=== PATIENT | female | born 1950 | race Caucasian/White ===

== ENCOUNTER 2016-10-14 11:18 | Inpatient (IN) | payer OTHER ==
[~2016-10-14] VITALS: Ht 170.2 cm; Wt 73.0 kg
[2016-10-14 11:23] VITALS: BP 179/120
--- NOTE | 2016-10-14 11:25 | NUR ---
66/F BIBA FROM HOME FOR 66 YO FEMALE LOW BACK PAIN R/T FALL. REPORTED TO BE ON THE FLOOR FOR 4 DAYS. AWAKE AND ALERT ON ARRIVAL, PLACED ON 5150 HOLD FOR GRAVELY DISABLED. NO ACUTE DISTRESS. REDNESS NOTED TO BACK. CMS INTACT X4. PT SAFETY AND COMFORT MEASURES PROVIDED.
--- NOTE | 2016-10-14 11:32 | NUR ---
Patient being evaluated by physician at bedside.
[2016-10-14] MEDS ORDERED: fentaNYL 0.05 MG/ML VIAL IM ONE (11:40)
[2016-10-14] MEDS ORDERED: NACL 0.9% 1,000 ML IV ONE (11:40)
--- NOTE | 2016-10-14 12:00 | NUR ---
20G TO LAC. BLOOD DRAWN FOR LABS. IV PATENT AND INTACT. IVF STARTED.
--- NOTE | 2016-10-14 12:14 | NUR ---
PT TAKEN TO XRAY VIA GUREDNA BY [facility].
[2016-10-14] MEDS ORDERED: POTASSIUM CHLORIDE 20% 40 MEQ/15 ML UDC PO ONE (12:20)
[2016-10-14] MEDS ORDERED: MORPHINE SULFATE 2 MG/ML SYR IVP PRN (12:35)
[2016-10-14] MEDS ORDERED: DOCUSATE SODIUM 100 MG GELCAP PO PRN (12:35)
[2016-10-14] MEDS ORDERED: HYDROcodone/APAP 5/325 MG 1 TAB TAB PO PRN (12:35)
[2016-10-14] MEDS ORDERED: ONDANSETRON 4 MG/2 ML VIAL IVP PRN (12:35)
[2016-10-14] MEDS: NACL 0.9% 1,000 ML IV SCH ×3 (12:45→21:52)
--- NOTE | 2016-10-14 12:51 | NUR ---
Patient will be admitted to care of DR. MONTANA. Admited to [facility] FOR TRACTABLE BACK PAIN, DEHYDRATION AND GRAVELY DISABLED 5150. Will go to room 123-B. Belongings list completed. Report to ESPINOZA MONTGOMERY.
[2016-10-14 13:10] VITALS: BP 166/103
--- NOTE | 2016-10-14 13:10 | NUR ---
PT ADMITTED. VS NOTED. MD MADE AWARE OF ELEVATED BP, LOW POTASSIUM. PT DENIES PAIN AT THIS TIME. NO S/S OF DISTRESS. ROUTINE/PLAN OF CARE DISCUSSED AND REVIEWED, PT VERBALIZES UNDERSTANDING AND COMPLIANCE. IVF INFUSING WELL TO LEFT AC, SITE ASYMPTOMATIC. PERICARE GIVEN. SKIN INTACT, REDNESS TO MEDIAL BACK AREA. BELONGINGS CHECKED AND KEPT AT BEDSIDE. SAFETY MEASURES ENSURED. WILL CONTINUE TO MONITOR.
[2016-10-14] MEDS ORDERED: ECOTRIN 81 MG TABEC PO SCH (13:30)
[2016-10-14] MEDS ORDERED: ATORVASTATIN 20 MG TAB PO SCH (13:30)
[2016-10-14] MEDS ORDERED: POTASSIUM CHLORIDE 20 MEQ, LIDOCAINE 1% 25 MG in NACL 0.9% 250 ML IV SCH (14:00)
[2016-10-14 16:00] VITALS: BP 163/87
[2016-10-14] MEDS ORDERED: BENICAR HCT 12.1 TAB PO (17:20)
[2016-10-14] MEDS ORDERED: ATIVAN0.5 MG PO (17:22)
[2016-10-14] MEDS ORDERED: PREMPRO 0.45 MG1 TAB PO (17:22)
[2016-10-14] MEDS ORDERED: LORazepam 0.5 MG TAB PO PRN (17:25)
--- NOTE | 2016-10-14 17:40 | NUR ---
DR SANCHEZ AT BEDSIDE FOR PSYCH EVAL. PT COOPERATIVE.
[2016-10-14] MEDS ORDERED: INFLUENZA VIRUS VACCINE QUAD 0.5 ML SYR IMVAC SCH (18:20)
[2016-10-14] MEDS ORDERED: PNEUMOCOCCAL VACCINE 23 MCG/0.5 ML VIAL IMVAC SCH (18:20)
--- NOTE | 2016-10-14 19:28 | NUR ---
ENDORSED PLAN OF CARE TO ELECTRON BEAM PHOTO MASK MAKER. CONDITION STABLE.
--- NOTE | 2016-10-14 19:30 | NUR ---
RECEIVED PT SLEEPING, EASILY AROUSABLE, AAOX4, VITAL SIGNS TAKEN, BP SLIGHTLY ELEVATED, ASYMPTOMATIC, DENIES ANY PAIN AT THIS TIME, K-RIDER INFUSING WELL, SAFETY MEASURES IN PLACE, SIDE RAILS UP AND BED ALARM ON, CALL LIGHT WITHIN REACH.
[2016-10-14 20:00] VITALS: BP 153/91
--- NOTE | 2016-10-14 22:00 | NUR ---
PT REFUSED TO BE REPOSITIONED, PT SAID "IM JAIME", COMPLAINING OF BACK PAIN WHEN MOVED BUT ABLE TO MOVED AND CHANGED POSITION OF LOWER EXTREMITIES INDEPENDENTLY, RISK AND BENEFITS EXPLAINED, CLINICAL PHARMACIST FRANK IS AWARE, MONITORED CLOSELY.
[2016-10-15] VITALS: BP 160/92
--- NOTE | 2016-10-15 02:09 | NUR ---
BEDPAN PROVIDED, VOIDED WITH 400ML TERE COLORED URINE, PERINEAL CARE DONE, REPOSITIONED AND OFFLOAD PRESSURE AREAS, TOLERATED WELL, MONITORED CLOSELY.
[2016-10-15 04:00] VITALS: BP 163/95
--- NOTE | 2016-10-15 04:00 | NUR ---
PT SLEEPING, EASILY AROUSABLE, VITAL SIGNS TAKEN, PT ANXIOUS DURING BP TAKING DUE TO CUFF IS TIGHT, INSTRUCTED TO RELAX SO WE WILL HAVE AN ACCURATE READING OF BP BUT PT STILL ANXIOUS, BP ELEVATED, SR ON TELE, PT DENIES CHEST PAIN, NO SOB NOTED, MONITORED CLOSELY.
[2016-10-15] MEDS: PANTOPRAZOLE 40 MG TABEC PO SCH (05:57)
--- NOTE | 2016-10-15 06:00 | NUR ---
AM LABS DRAWN, DUE PO PROTONIX TAKEN, DENIES PAIN AT THIS TIME, IVF INFUSING WELL, FOR PT EVAL TODAY, MONITORED CLOSELY.
[2016-10-15] MEDS: NACL 0.9% 1,000 ML IV SCH (06:03)
--- NOTE | 2016-10-15 06:46 | NUR ---
K LEVEL OF 2.6, DR MONTANA HERE AND MADE AWARE, WILL PUT ORDER, DR MONTANA ALSO MADE AWARE OF ELEVATED BP, PT WILL START BP MEDICATION TODAY WITH TIFFANY AND BRENT, DR SAID THAT WE WILL RECHECK BP LATER AFTER SHE GOT HER BP MEDICATION, WILL ENDORSE TO AM SHIFT.
--- NOTE | 2016-10-15 07:20 | NUR ---
PT ASLEEP, EASILY AROUSABLE, REPORT GIVEN TO RN MISAEL FOR CONTINUITY OF CARE.
--- NOTE | 2016-10-15 07:21 | NUR ---
RECEIVED REPORT AT BEDSIDE. PT RESTING IN BED. DENIES PAIN. AAOX4. IV SITE PATENT AND INTACT. CALL LIGHT WITHIN REACH. NO S/S OF RESPIRATORY DISTRESS, ON RA.
[2016-10-15 08:00] VITALS: BP 183/91
--- NOTE | 2016-10-15 08:02 | NUR ---
PATIENT HAS BEEN SCREENED AND CATEGORIZED MODERATE NUTRITION RISK. PATIENT WILL BE SEEN WITHIN 3-5 DAYS OF ADMISSION. 10/17/16-10/19/[address]
[2016-10-15] MEDS: POTASSIUM CHLORIDE 10 MEQ TABER PO SCH ×2 (08:38→12:59)
[2016-10-15] MEDS: ATORVASTATIN 20 MG TAB PO SCH (08:38)
[2016-10-15] MEDS: ECOTRIN 81 MG TABEC PO SCH (08:39)
[2016-10-15] MEDS: HYDROCHLOROTHIAZIDE 25 MG TAB PO SCH (08:39)
[2016-10-15] MEDS: LOSARTAN 50 MG TAB PO SCH (08:39)
[2016-10-15] MEDS ORDERED: OLMESARTAN PO SCH (09:00)
[2016-10-15] MEDS ORDERED: HYDROCHLOROTHIAZIDE PO SCH (09:00)
[2016-10-15] MEDS ORDERED: M PROGEST ACET PO SCH (09:00)
[2016-10-15] MEDS ORDERED: ESTROGEN CON PO SCH (09:00)
[2016-10-15] MEDS ORDERED: [UNRECOGNIZED DRUG - OTHER] PO SCH (09:00)
--- NOTE | 2016-10-15 11:30 | NUR ---
PT RESTING IN BED. HAD ECHO PROCEDURE DONE AT BEDSIDE, NO S/S OF ACUTE DISTRESS.
[2016-10-15 12:00] VITALS: BP 160/76
--- NOTE | 2016-10-15 12:27 | NUR ---
CM NOTE PER TICKET SPECULATOR CANDY EXT [phone], REVIEWS SHOULD BE SENT TO [facility] ONLY. INITIAL REVIEW SENT TO [facility] FAX# [phone] PH# [phone]
--- NOTE | 2016-10-15 12:36 | NUR ---
PATIENT SEEN BY DR. FOREMAN AT BEDSIDE. PT RESTING IN BED. REFUSES TO BE TURNED. PATIENT LINENS CHANGED, CLEAN AND DRY.
--- NOTE | 2016-10-15 13:37 | NUR ---
FREDDY ROWE SPOKE WITH FREDDY GTZ OF [facility] PH# [phone] TO INFORM HER OF THE ORDER TO TRANSFER FOR HIGHER LEVEL OF CARE AND [facility]# [phone]. SHE SAID SHE WILL CALL BACK WHEN SHE HAS AN ACCEPTING HOSPITAL AND DOCTOR. GAVE HER THE NUMBER TO THE NURSING FLOOR WHERE THE PATIENT IS IN CASE THE TRANSFER HAPPENS LATER. CHARGE NURSE KARON EXT [phone] AWARE. Addendum: 10/15/16 at 1352 by Karishma Valles CM GAVE FREDDY GTZ OF [facility] THE NUMBER OF DR. MARQUEZ PH# [phone] FOREMAN (NEURO) PH# [phone] FOR DOCTOR TO DOCTOR REPORT.
--- NOTE | 2016-10-15 15:02 | NUR ---
CM NOTE SPOKE WITH FREDDY GTZ OF [facility]# [phone] AND SHE SAID THERE IS NO ACCEPTING NEURO DOCTOR IN [facility] SO SHE WILL TRY THEIR OTHER CONTRACTED FACILITIES [facility] AND [place] IF THERE IS BED AVAILABLE AND IF THERE WILL BE AN ACCEPTING NEURO. GAVE HER THE NUMBER TO THE NURSING FLOOR CHARGE NURSE WHERE PATIENT IS, IN CASE A BED AND ACCEPTING FACILITY WILL BE AVAILABLE LATER. CHARGE NURSE KARON WORKMAN EXT [phone].
--- NOTE | 2016-10-15 15:40 | NUR ---
DR. THOMPSON MADE AWARE OF INCREASED BP. MD TO PLACE ORDERS. PT RESTING IN BED. NO S/S OF ACUTE DISTRESS. ASSISTED IN CHANGING OF POSITIONS, LINENS CHANGED, PATIENT CLEAN AND DRY.
[2016-10-15 16:00] VITALS: BP 176/98
--- NOTE | 2016-10-15 16:19 | NUR ---
FREDDY ROWE SPOKE WITH FREDDY GTZ OF [facility] PH# [phone] AND SHE SAID THEIR ROBOTICS MECHANIC SAID TO GO AHEAD AND TRANSFER THE PATIENT TO [facility]. CALLED [facility] TRANSFER CENTER PH# [phone] AND SPOKE TO GARCIELA AND SHE SAID TO CALL THEIR CLIENT SERVICES [facility] AT PH# [phone] OPTION 2. CALLED [facility]# [phone] OPTION 2 AND SPOKE WITH JAKE AND SHE SAID THEY DON'T HAVE ANY BED AVAILABLE AND THEY DON'T HAVE AN ACCEPTING NEURO RIGHT NOW. FAXED THE INFORMATION [facility] NEEDED REGARDING THE PATIENT TO FAX# [phone]. CALLED BACK FREDDY GTZ OF [facility] SEVERAL TIMES AND LEFT SEVERAL MESSAGES TO HER OFFICE NUMBER PH# [phone] AND CELLPHONE NUMBER PH# [phone] TO INFORM HER [facility] DOESN'T HAVE A BED RIGHT AND TO ASK WHERE ELSE THEY WANT US TO TRANSFER THE PATIENT. LEFT THE NUMBER TO THE NURSING FLOOR WHERE THE PATIENT IS TO FREDDY GTZ'S VOICEMAIL IN CASE SHE WILL CALL BACK AT A LATER TIME. RECEIVED CALL BACK FROM FREDDY GTZ AND SHE SAID TO TRY AND [facility]. CALLED [facility] PH# [phone] AND FAXED PATIENT INFORMATION TO [facility] INCLUDING THE NUMBER TO THE NURSING FLOOR CHARGE NURSE WHERE THE PATIENT IS. FAX# [phone]. PATIENT'S NURSE TO FOLLOW UP ON BED WITH FREDDY GTZ OF [facility] PH# [phone] OR [phone] AND WITH [facility] PH# [phone] AND [facility] AND TO SET UP TRANSPORT ONCE AVAILABLE. CHARGE NURSE KARON WORKMAN EXT [phone]. Addendum: 10/15/16 at 1654 by Karishma Valles CM FAXED PATIENT INFORMATION TO [facility] FAX# [phone] # [phone]
--- NOTE | 2016-10-15 17:00 | NUR ---
SPOKE WITH DR. MARQUEZ, PATIENT TO HAVE ANXIETY MEDICATION AND HAVE BP RECHECKED.
--- NOTE | 2016-10-15 18:30 | NUR ---
RECHECKED PATIENT'S BP. 159/92, HR 110. NO S/S OF DISTRESS NOTED. EATING DINNER IN BED.
--- NOTE | 2016-10-15 19:25 | NUR ---
RECEIVED REPORT FROM ESPINOZA DOUGLAS AT BEDSIDE. INITIAL ASSESSMENT COMPLETED. PT AAX4. PT ON BEDREST. PT HAS IV TO LEFT FOREARM G 20; ASYMPTOMATIC, PATENT AND INTACT INFUSING FLUIDS WELL. PT HAS SOME REDNESS ON HER BACK. ORIENTED PT TO ROOM AND SURROUNDING AND USE OF CALL LIGHT. EXPLAINED PLAN OF CARE TO PT AND SHE VERBALIZES UNDERSTANDING. PT HAS SCDS ON. WILL CONTINUE TO MONITOR PT.
--- NOTE | 2016-10-15 19:36 | NUR ---
SBAR REPORT GIVEN TO ESPINOZA ALLEN AT PT BEDSIDE. NO S/S OF ACUTE DISTRESS.
[2016-10-15 20:00] VITALS: BP 149/91
[2016-10-15] MEDS: MUPIROCIN 2% OINT 22 GM TUBE TP SCH (20:00)
[2016-10-15] MEDS: CHLORHEXADINE GLUC 2% CLOTH TP SCH (21:53)
--- NOTE | 2016-10-15 22:02 | NUR ---
PT SLEEPING AT THIS TIME, NO SIGNS OF DISTRESS OR DISCOMFORT NOTED, WILL CONTINUE TO MONITOR PT.
--- NOTE | 2016-10-15 23:37 | NUR ---
PT AWAKE. ASKED IF SHE NEEDED ANYTHING. PT STATED "I DON'T THINK SO". CALL LIGHT WITHIN REACH, WILL CONTINUE TO MONITOR PT.
[2016-10-16] VITALS: BP 150/83
--- NOTE | 2016-10-16 01:00 | NUR ---
PT SLEEPING AT THIS TIME, NO SIGNS OF DISTRESS OR DISCOMFORT NOTED. WILL CONTINUE TO MONITOR PT.
--- NOTE | 2016-10-16 02:29 | NUR ---
RECEIVED A CALL FROM HANH ROBLES FROM [facility]. HE WANTED TO KNOW STATUS OF PT. HE STATED THAT THEY WOULD START WORKING ON REQUEST FOR PT.
[2016-10-16 04:00] VITALS: BP 148/81
--- NOTE | 2016-10-16 04:52 | NUR ---
PT SLEEPING COMFORTABLY. IV FLUIDS INFUSING WELL. NO SIGNS OF DISTRESS/DISCOMFORT NOTED. WILL CONTINUE TO MONITOR PT.
--- NOTE | 2016-10-16 05:21 | NUR ---
ALFREDO NUNEZ AND MARCI CHANGING PT'S GOWN AND LINEN. PT STABLE, NOS SIGNS OF DISTRESS NOTED. WILL CONTINUE TO MONITOR PT.
[2016-10-16] MEDS: PANTOPRAZOLE 40 MG TABEC PO SCH (05:38)
[2016-10-16] MEDS: NACL 0.9% 1,000 ML IV SCH (05:38)
--- NOTE | 2016-10-16 05:43 | NUR ---
PT TOLERATED 0630 MED WELL. PT EDUCATED ON MEDICATION. WILL CONTINUE TO MONITOR PT.
--- NOTE | 2016-10-16 07:15 | NUR ---
ENDORSED PLAN OF CARE TO ESPINOZA MONTGOMERY. PT IN STABLE CONDITION.
--- NOTE | 2016-10-16 07:30 | NUR ---
RECEIVED REPORT FROM NIGHT NURSE. AOX4, PT RESTING IN BED. NO C/O ACUTE DISTRESS, NO SOB OR CP. IV ACCESS ASYMPTOMATIC, PATENT AND INTACT. ROUTINE/PLAN OF CARE DISCUSSED AND REVIEWED, PT VERBALIZES UNDERSTANDING AND COMPLIANCE. SAFETY MEASURES IN PLACE. WILL CONTINUE TO MONITOR.
[2016-10-16 08:00] VITALS: BP 162/94
[2016-10-16] MEDS: ATORVASTATIN 20 MG TAB PO SCH (09:04)
[2016-10-16] MEDS: ECOTRIN 81 MG TABEC PO SCH (09:04)
[2016-10-16] MEDS: LOSARTAN 50 MG TAB PO SCH (09:05)
[2016-10-16] MEDS: HYDROCHLOROTHIAZIDE 25 MG TAB PO SCH (09:06)
--- NOTE | 2016-10-16 09:10 | NUR ---
VS NOTED. PT ROUTINE MEDS GIVEN WITH EDUCATION. PT TOLERATED WELL. ASSISTED WITH ADLS AND AM CARE. WILL CONTINUE TO MONITOR.
--- NOTE | 2016-10-16 10:00 | NUR ---
NOTIFIED DR MARQUEZ REGARDING ABNORMAL LABS. ORDERS PENDING. PT RESTING COMFORTABLY. SAFETY MEASURES IN PLACE. WILL CONTINUE TO MONITOR.
[2016-10-16] MEDS ORDERED: POTASSIUM CHLORIDE 10 MEQ TABER PO SCH (11:00)
[2016-10-16 12:00] VITALS: BP 155/89
[2016-10-16] MEDS: MAGNESIUM OXIDE 400 MG TAB PO SCH ×2 (12:13→21:11)
[2016-10-16] MEDS: SODIUM PHOS / POTASSIUM PHOS 1 PKT PDR PO SCH ×2 (12:13→16:22)
--- NOTE | 2016-10-16 12:17 | NUR ---
MEDICATIONS GIVEN WITH EDUCATION, PT VERBALIZES UNDERSTANDING. PT TOLERATED MEDS WELL. ASSISTED PT WITH ADLS. SAFETY MEASURES IN PLACE. CALL LIGHT WITHIN REACH. WILL CONTINUE TO MONITOR
--- NOTE | 2016-10-16 14:00 | NUR ---
PT SLEEPING COMFORTABLY. NO S/S OF DISTRESS. CALL LIGHT WITHIN REACH. SAFETY MEASURES IN PLACE. WILL CONTINUE TO MONITOR.
--- NOTE | 2016-10-16 15:45 | NUR ---
CALL FOR FOLLOW UP ON TRANSFER NOT ANSWERED BY FREDDY GTZ FROM [facility] OR [facility]. SPOKE WITH TRESA FROM [place], SHE STATED THAT SHE WILL CALL BACK TO UPDATE AFTER SHE HAS DISCUSSED THE TRANSFER WITH THE DOCTORS.
[2016-10-16 16:00] VITALS: BP 162/95
[2016-10-16] MEDS: ACETAMINOPHEN 325 MG TAB PO PRN (16:22)
--- NOTE | 2016-10-16 17:36 | NUR ---
RECEIVED CALL FROM TRESA FROM [facility], STATING THAT DR LUIS HAS ACCEPTED THE TRANSFER, BUT SHE IS STILL LOOKING FOR A BED.
[2016-10-16] MEDS: amLODIPine 5 MG TAB PO SCH (18:08)
--- NOTE | 2016-10-16 18:35 | NUR ---
CALLED TRESA FROM [facility], NO ANSWER. LEFT A VOICEMAIL TO REQUEST TRESA TO CALL BACK TO GET INSURANCE AUTHORIZATION FOR TRANSFER.
--- NOTE | 2016-10-16 19:16 | NUR ---
ENDORSED PLAN OF CARE TO NIGHT NURSE. CONDITION STABLE.
--- NOTE | 2016-10-16 19:25 | NUR ---
RECEIVED PT IN STABLE CONDITION FROM AM NURSE. AWAKE,ALERT AND ORIENTED X4. ON TELE MONITOR. BEDREST. WITH NO ACUTE DISTRESS NOTED. BEDREST. FREQUENT ROUNDS NEEDED. SIDE RAILS UP X2. CALL LIGHT PLACED WITHIN EASY REACH. PLAN OF CARE DISCUSSED . BED ON LOW POSITION. BED ALARM ON,. WILL CONTINUE TO MONITOR.
[2016-10-16 20:00] VITALS: BP 156/75
[2016-10-16] MEDS: CHLORHEXADINE GLUC 2% CLOTH TP SCH (20:02)
[2016-10-16] MEDS: MUPIROCIN 2% OINT 22 GM TUBE TP SCH (20:02)
--- NOTE | 2016-10-16 21:00 | NUR ---
PT IS AWAKE, NO C/O ANY PAIN AT THIS TIME. WILL CONTINUE TO MONITOR.
--- NOTE | 2016-10-16 23:00 | NUR ---
SLEEPING AT THIS TIME. NO DISCOMFORT NOR PAIN NOTED.
[2016-10-17 01:00] VITALS: BP 145/79
--- NOTE | 2016-10-17 01:00 | NUR ---
AWAKE,ALERT AND ORIENTED. NO C/O ANY PAIN AT THIS TIME. REPOSITIONED FOR COMFORT. WITH WITH REDNESS ON THE LOWER BACK. AND ALSO LIKE REDNESS, SCRATCHES ON UPPER BACK NO DRAIN . WILL TAKE PICTURE.
--- NOTE | 2016-10-17 02:30 | NUR ---
PT IS ASLEEP. ON O23L/NC. O2 SAT 95%. WILL CONTINUE TO MONITOR.
[2016-10-17] MEDS ORDERED: MILD SOAP AND WATER TP PRN (03:40)
[2016-10-17] MEDS ORDERED: HYDRAGUARD CREAM TP PRN (03:40)
[2016-10-17 04:08] VITALS: BP 155/83
--- NOTE | 2016-10-17 04:30 | NUR ---
HAS BEEN REPOSITIONED FOR COMFORT. NO C/O PAIN NOTED. WILL CONTINUE TO MONITOR.
[2016-10-17] MEDS: PANTOPRAZOLE 40 MG TABEC PO SCH (06:08)
[2016-10-17] MEDS: NACL 0.9% 1,000 ML IV SCH (06:58)
--- NOTE | 2016-10-17 07:05 | NUR ---
ENDORSED PT IN STABLE CONDITION TO AM NURSE.
--- NOTE | 2016-10-17 07:30 | NUR ---
RECEIVED REPORT FROM NIGHT NURSE. PT AOX4, PT EATING IN BED IN HIGH FOWLERS. PT DENIES ACUTE DISTRESS, SOB OR CHEST PAIN. SAFETY MEASURES ENSURED. CALL LIGHT WITHIN REACH. PLAN OF CARE DISCUSSED WITH PATIENT, PT VERBALIZES UNDERSTANDING.
[2016-10-17 08:00] VITALS: BP 162/101
[2016-10-17] MEDS: amLODIPine 5 MG TAB PO SCH (08:29)
[2016-10-17] MEDS: LOSARTAN 50 MG TAB PO SCH (08:29)
[2016-10-17] MEDS: HYDROCHLOROTHIAZIDE 25 MG TAB PO SCH (08:31)
[2016-10-17] MEDS: ATORVASTATIN 20 MG TAB PO SCH (08:32)
[2016-10-17] MEDS: ECOTRIN 81 MG TABEC PO SCH (08:32)
[2016-10-17] MEDS: SODIUM PHOS / POTASSIUM PHOS 1 PKT PDR PO SCH (08:33)
--- NOTE | 2016-10-17 08:45 | NUR ---
MEDICATIONS ADMINISTERED WITH EDUCATION. PT VERBALIZES UNDERSTANDING. PT TOLERATED MEDS WELL. ASSISTED PT WITH ADLS. SAFETY MEASURES IN PLACE. CALL LIGHT WITHIN REACH. WILL CONTINUE TO MONITOR.
[2016-10-17 12:00] VITALS: BP 147/100
--- NOTE | 2016-10-17 12:30 | NUR ---
ADMINISTERED MEDICATIONS WITH EDUCATION, PT VERBALIZES UNDERSTANDING. PT TOLERATED MEDS WELL. ASSISTED PT WITH PERICARE, PT TOLERATED SLOW MOVEMENTS. SAFETY MEASURES ENSURED. Addendum: 10/17/16 at 1756 by Kevin Lloyd RN NOTE IS FOR 10/17/16 2410
[2016-10-17] MEDS ORDERED: POTASSIUM CHLORIDE 10 MEQ TABER PO SCH (13:00)
--- NOTE | 2016-10-17 13:41 | NUR ---
[facility] AND LEFT A MESSAGE REGARDING AUTHORIZATION FOR [facility].
[2016-10-17] MEDS: MAGNESIUM OXIDE 400 MG TAB PO SCH ×2 (14:03→21:45)
[2016-10-17] MEDS: ACETAMINOPHEN 325 MG TAB PO PRN (14:22)
--- NOTE | 2016-10-17 15:44 | NUR ---
RECEIVED CALL FROM SUNNY FROM [place] STATING THAT SHE HAS RECEIVED THE INSURANCE AUTHORIZATION FROM [facility]. SHE STATED THAT SHE WILL CALL BACK WHEN THERE IS A BED AVAILABLE.
[2016-10-17] MEDS: HYDRAGUARD CREAM TP SCH (15:53)
[2016-10-17] MEDS: MILD SOAP AND WATER TP SCH (15:53)
[2016-10-17 16:00] VITALS: BP 136/74
--- NOTE | 2016-10-17 16:00 | NUR ---
ASSISTED PT WITH ADLS, PT TOLERATED SLOW MOVEMENTS. WOUND CARE ORDERS PERFORMED PER PROTOCOL. PT REPORTS TENDERNESS ON BACK. SAFETY MEASURES ENSURED.
--- NOTE | 2016-10-17 19:30 | NUR ---
RECEIVED PT IN STABLE CONDITION FROM AM NURSE. AAO X4. BUT PT HAS HX: ANXIETY. BEDREST DUE TO GEN WEAKNESS. ON TELE -SR-ST. NO C/O ANY PAIN AT THIS TIME. HAS HL ON THE LT AC#20. CLEAR AND PATENT. WITH REDNESS ON UPPER AND LOWER BACK. NEED TURNING TO SIDES Q2HRS. CALL LIGHT PLACED WITHIN EASY REACH. BED ON LOW POSITION. WILL CONTINUE TO MONITOR.
--- NOTE | 2016-10-17 19:30 | NUR ---
CONDITION STABLE, ENDORSED PLAN OF CARE TO DISTRIBUTION ESTIMATOR RN.
[2016-10-17] MEDS: MUPIROCIN 2% OINT 22 GM TUBE TP SCH (19:42)
[2016-10-17] MEDS: CHLORHEXADINE GLUC 2% CLOTH TP SCH (19:43)
[2016-10-17 20:00] VITALS: BP 152/80
--- NOTE | 2016-10-17 20:30 | NUR ---
ASSISTED PT TO EAT DINNER. ABLE TO CONSUME 80% OF THE MEAL.
[2016-10-18 00:20] VITALS: BP 142/76
[2016-10-18] MEDS: HYDRAGUARD CREAM TP SCH ×2 (01:00→12:31)
[2016-10-18] MEDS: MILD SOAP AND WATER TP SCH ×2 (01:53→12:31)
--- NOTE | 2016-10-18 03:38 | NUR ---
SLEEPING AT THIS TIME. NO S/S OF ANY DISCOMFORT NOR PAIN NOTED. WILL CONTINUE TO MONITOR.
--- NOTE | 2016-10-18 03:43 | NUR ---
CALLED FOR BEDPAN. VOIDED @ 350 ML. CLEANED AND KEPT DRY.
[2016-10-18 04:20] VITALS: BP 144/80
--- NOTE | 2016-10-18 04:30 | NUR ---
VITAL SIGNS STABLE. HAS BEEN REPOSITIONED FOR COMFORT.
[2016-10-18] MEDS: PANTOPRAZOLE 40 MG TABEC PO SCH (05:57)
--- NOTE | 2016-10-18 06:28 | NUR ---
STILL AWAITING FOR [facility] TO CALL FOR AVAILABLE BED FOR TRANSFER. WILL ENDORSE TO AM NURSE.
--- NOTE | 2016-10-18 07:05 | NUR ---
ENDORSED PT IN STABLE CONDITION TO AM NURSE.
--- NOTE | 2016-10-18 07:30 | NUR ---
RECEIVED REPORT FROM NIGHT NURSE. AOX4, PT RESTING IN BED. IV SITE SALINE LOCKED, ASYMPTOMATIC, PATENT AND INTACT. NO SOB, CHEST PAIN OR ACUTE DISTRESS. NO S/S OF DISTRESS. SAFETY MEASURES ENSURED.
[2016-10-18 08:00] VITALS: BP 155/73
[2016-10-18] MEDS: ATORVASTATIN 20 MG TAB PO SCH (09:32)
[2016-10-18] MEDS: amLODIPine 5 MG TAB PO SCH (09:32)
[2016-10-18] MEDS: HYDROCHLOROTHIAZIDE 25 MG TAB PO SCH (09:33)
[2016-10-18] MEDS: LOSARTAN 50 MG TAB PO SCH (09:33)
[2016-10-18] MEDS: ECOTRIN 81 MG TABEC PO SCH (09:34)
--- NOTE | 2016-10-18 09:37 | NUR ---
VS NOTED. MEDICATIONS ADMINISTERED WITH EDUCATION, PT TOLERATED TAKING MEDICATIONS SLOWLY. NO S/S OF DISTRESS. SAFETY MEASURES ENSURED. WILL CONTINUE TO MONITOR.
--- NOTE | 2016-10-18 11:19 | NUR ---
FREDDY NOTE CONCURRENT REVIEW SENT TO [facility] FAX# [phone] TRESA PH# [phone]. SPOKE WITH SUNNY OF [place] TO FOLLOW UP ON BED AND SHE SAID STILL NO BED AVAILABLE. SPOKE WITH FREDDY GTZ OF [facility] TO INFORM HER THAT STILL WAITING FOR BED AVAILABILITY IN [place].
[2016-10-18 12:00] VITALS: BP 139/89
--- NOTE | 2016-10-18 12:00 | NUR ---
ASSISTED PT WITH ADLS, AM CARE AND LINEN CHANGE WITH TAPPER BALANCE WHEEL SCREW HOLE. PT REPOSITIONED. PT TOLERATED WELL. WOUND CARE PERFORMED, PT REPORTS TENDERNESS ON BACK. NO S/S OF DISTRESS. SAFETY MEASURES ENSURED. CALL LIGHT WITHIN REACH. WILL CONTINUE TO MONITOR.
--- NOTE | 2016-10-18 14:12 | NUR ---
FREDDY ROWE SPOKE WITH TRESA OF [place] TO FOLLOW UP ON BED AVAILABILITY PH# [phone] AND SHE SAID NO BED AVAILABLE YET. SPOKE WITH FREDDY GTZ OF [facility] PH# [phone] TO UPDATE HER THAT STILL AWAITING BED AVAILABILITY AT [place]. PER FREDDY GTZ AMBULANCE AUTH# [id number]. PATIENT'S NURSE TO FOLLOW ON A BED AT [place] PH# [phone] OPTION 3 AND TO SET UP PATIENT TRANSPORT ONCE BED IS AVAILABLE. NURSE [place] WORKMAN EXT [phone]. Addendum: 10/18/16 at 1454 by Karishma Valles CM SPOKE WITH MICHELE OF [facility] PH# [phone] TO FOLLOW UP ON A BED AND SHE SAID TO CALL THEIR CLIENT SERVICES. SPOKE WITH JAKE ABAD [facility] CLIENT SERVICES AND SHE SAID THAT THEY HAVE RECEIVED THE REQUEST FOR TRANSFER LAST 10/15/16 AND THAT THEY ARE EVALUATE STATUS AND NO ACCEPTING DOCTOR. [facility] PH# [phone].
--- NOTE | 2016-10-18 15:32 | NUR ---
SPOKE WITH TRESA FROM [place] TO FOLLOW UP ON TRANSFER. SHE STATED THAT THEY ARE STILL LOOKING FOR AN ISOLATION BED DUE TO THE PT'S MRSA. SHE STATED THAT SHE WILL CALL BACK WHEN THERE IS A BED AVAILABLE.
[2016-10-18 16:00] VITALS: BP 141/77
--- NOTE | 2016-10-18 19:22 | NUR ---
ENDORSED PLAN OF CARE TO CONSTRUCTION PLANT OPERATOR. CONDITION STABLE.
--- NOTE | 2016-10-18 19:30 | NUR ---
RECEIVED PT AWAKE, AAOX4, VITAL SIGNS STABLE, DENIES ANY PAIN, SCD'S IN PLACE, MAINTAIN ON CONTACT ISOLATION, POC DISCUSSED, AWAITING AVAILABILITY OF BED AT [place], PT VERBALIZED UNDERSTANDING, CALL LIGHT WITHIN REACH.
[2016-10-18] MEDS: CHLORHEXADINE GLUC 2% CLOTH TP SCH (19:57)
[2016-10-18] MEDS: MUPIROCIN 2% OINT 22 GM TUBE TP SCH (19:57)
[2016-10-18 20:00] VITALS: BP 131/74
--- NOTE | 2016-10-18 22:00 | NUR ---
ROUNDED ON PT, ASLEEP, EASILY AROUSABLE, PT REFUSED TO BE REPOSITIONED AT THIS TIME, SAYING "IM JAIME", RISK AND BENEFITS EXPLAINED, MONITORED CLOSELY.
--- NOTE | 2016-10-18 23:40 | NUR ---
PT INCONTINENT OF URINE, PERINEAL CARE DONE AND BED LINEN CHANGED, RECOMMEND TO REPOSITION TO SIDES SO THAT HER REDNESS TO LOWER AND UPPER BACK WILL BE BETTER BUT PT PREFER TO LIE ON HER BACK, RISK AND BENEFITS EXPLAINED.
[2016-10-19] VITALS: BP 149/84
[2016-10-19] MEDS: MILD SOAP AND WATER TP SCH ×2 (00:24→11:30)
[2016-10-19] MEDS: HYDRAGUARD CREAM TP SCH ×2 (00:24→11:30)
--- NOTE | 2016-10-19 03:30 | NUR ---
FERNANDEZ FROM [facility] CALLED, UPDATED ON PT'S CONDITION, SHE SAID THAT THEY ARE STILL TRYING TO GET A BED FOR THE PT AND THEY WILL CALL LATER IN THE MORNING TO LET US KNOW IF THERE IS A BED AND STAFF AVAILABLE, RADIO DIVISION OFFICER FAIRY MADE AWARE.
[2016-10-19 04:00] VITALS: BP 150/72
[2016-10-19] MEDS: PANTOPRAZOLE 40 MG TABEC PO SCH (06:00)
--- NOTE | 2016-10-19 06:00 | NUR ---
BEDPAN PROVIDED AND VOIDED FREELY, DUE PO MEDICATION TAKEN, SAFETY MEASURES IN PLACE, CALL LIGHT WITHIN REACH.
--- NOTE | 2016-10-19 07:15 | NUR ---
PT AWAKE, NO SIGNS OF DISTRESS, REPORT GIVEN TO ESPINOZA MONTGOMERY FOR CONTINUITY OF CARE.
--- NOTE | 2016-10-19 07:30 | NUR ---
RECEIVED REPORT FROM NIGHT NURSE. AOX4, PT RESTING COMFORTABLY. NO SOB, CHEST PAIN OR S/S OF DISTRESS. OPERATIONS SYSTEMS SPECIALIST IN PLACE. IV SITE, ASYMPTOMATIC, PATENT AND INTACT, SALINE LOCKED. PT REPOSITINED, AND ASSISTED PT WITH ADLS. PLAN OF CARE REVIEWED AND DISCUSSED WITH PT, VERBALIZES UNDERSTANDING SAFETY MEASURES ENSURED, CALL LIGHT WITHIN REACH. WILL CONTINUE TO MONITOR.
[2016-10-19 07:46] VITALS: BP 144/79
--- NOTE | 2016-10-19 08:35 | NUR ---
WOUND CARE NOTES: SEEN PATIENT TODAY RE: REDNESS TO BACK. COMPLETE SKIN ASSESSMENT DONE ON THIS 66 Y/O FEMALE PATIENT FROM HOME TO [facility], WITH INITIAL DIAGNOSIS OF INTRACTABLE BACK PAIN, DEHYDRATION AND 5150 HOLD. PAST MEDICAL HISTORY INCLUDE HYPERTENSION, ANXIETY AND POST MENOPAUSAL. ALL ABOVE INFORMATION WAS OBTAINED FROM THE ADMISSION H&P. LABS ARE WBC 8.8, H/H 13.0/39.2, GLUCOSE 109, ALBUMIN 2.4, PT/INR 11.0/1.2 AND PTT 26.7. CURRENT MEDS INCLUDE ASPIRIN, ATIVAN, NORCO AND MORPHINE. PATIENT IS AWAKE, ORIENTED TO PERSON, PLACE AND TIME. SKIN WARM TO TOUCH WNL, TOENAILS WNL, NO EDEMA, NO HAIR GROWTH AND +2 BILATERAL PEDAL PULSES. URINE AND BOWEL CONTINENT, ABLE TO AMBULATE TO THE RESTROOM CLAIMED. ABLE TO TURN SELF WITHOUT ASSISTANCE. INITIAL PLAN OF CARE AND PRESSURE PREVENTIVE MEASURES DISCUSSED, ABLE TO VERBALIZE UNDERSTANDING. INTEGUMENTARY: MID LOWER BACK - BLANCHABLE REDNESS MID UPPER BACK - BLANCHABLE REDNESS RECOMMENDATIONS: -CLEANSE SACRALCOCCYX TO PERIAREA WITH MILD SOAP AND WATER, PAT DRY, APPLY HYDRAGUARD BIDWC AND PRN WITH SOILING/DISPLACEMENT. -TURN AND REPOSITION PATIENT Q2H -ASSESS AND MONITOR SKIN CONDITION DURING POSITION CHANGE, PLEASE PAY PARTICULAR ATTENTION TO SACRALCOCCYX, ELBOWS AND HEELS -OFFLOAD BILATERAL HEELS BY PLACING PILLOWS UNDER CALVES AT ALL TIMES, UNLESS OTHERWISE CONTRAINDICATED -KEEP SKIN CLEAN AND DRY AT ALL TIMES. RECOMMENDATIONS DISCUSSED WITH PRIMARY RN AND RESIDENT PHYSICIAN, DR. VELAZQUEZ NO FOLLOW UP NEEDED AT THIS TIME. PLEASE CONTACT [facility] FOR ANY CONCERNS, QUESTIONS AND CHANGES IN SKIN CONDITION.
[2016-10-19] MEDS: HYDROCHLOROTHIAZIDE 25 MG TAB PO SCH (09:40)
[2016-10-19] MEDS: amLODIPine 5 MG TAB PO SCH (09:40)
[2016-10-19] MEDS: ECOTRIN 81 MG TABEC PO SCH (09:40)
[2016-10-19] MEDS: ATORVASTATIN 20 MG TAB PO SCH (09:40)
[2016-10-19] MEDS: LOSARTAN 50 MG TAB PO SCH (09:41)
--- NOTE | 2016-10-19 09:45 | NUR ---
VS NOTED. MEDICATIONS ADMINISTERED WITH EDUCATION, PT TOLERATED WELL. ASSISTED WITH ADLS, AM CARE, LINEN CHANGE AND REPOSITIONING WITH BILINGUAL MEDICAL ASSISTANT. PT TOLERATED WELL. SAFETY MEASURES ENSURED. CALL LIGHT WITHIN REACH. WILL CONTINUE TO MONITOR.
--- NOTE | 2016-10-19 10:03 | NUR ---
FAXED CONCURRENT REVIEW TO [facility] [phone] PHONE TRESA [phone] RECEIVED A CALL FROM CASE FROM [facility]. THEY HAVE A BED FOR THE PATIENT, ROOM 8300 [address]OM [address] LUIS . CALL REPORT TO [phone]. I INFORMED ESPINOZA BOYD. THE AUTH FOR TRANSPORT IS [id number]. LICO DORAN CM COFFEE MACHINE TECHNICIAN WILL SET UP TRANSPORT
[2016-10-19 10:46] VITALS: BP 144/79
--- NOTE | 2016-10-19 10:54 | NUR ---
CALLED [facility] AND SPOKE WITH CLINT. [facility] TRANSPORT SCHEDULED FOR 12-12:30 OUTCOME ANALYST TO GO TO [facility]. VALENTINA DORAN INFORMED AND REQUESTED THAT PT BE GIVEN AN EARLY LUNCH BEFORE TRANSPORT.
--- NOTE | 2016-10-19 11:05 | NUR ---
CALLED REPORT AND ENDORSED PLAN OF CARE TO KAYLAH FROM [place].
--- NOTE | 2016-10-19 11:08 | NUR ---
PATIENT WILL GO TO [facility] [address] RO[address] LUIS REPORT [phone].
--- NOTE | 2016-10-19 11:17 | NUR ---
CALLED [facility], NOTIFIED THE FACILITY TO LEAVE A MESSAGE TO PT'S HAWK RIZZO REGARDING PT'S TRANSFER TO [place].
[2016-10-19] MEDS ORDERED: HYDRAGUARD CREAM TP PRN (11:35)
[2016-10-19 12:00] VITALS: BP 115/63
--- NOTE | 2016-10-19 12:30 | NUR ---
ASSISTED WITH ADLS, PT TOLERATED WELL. DISCHARGE INSTRUCTIONS, PLAN OF CARE AND MEDICATIONS DISCUSSED AND REVIEWED. PT VERBALIZES UNDERSTANDING. ALL DISCHARGE PAPERWORK SIGNED. IV SITE ASYMPTOMATIC, PATENT AND INTACT, LEFT IN PLACE FOR TRANSFER.
[2016-10-19] MEDS ORDERED: HYDRAGUARD CREAM TP SCH (13:00)
--- NOTE | 2016-10-19 13:05 | NUR ---
DC'D PT VIA [facility]. CONDITION STABLE.
== END 2016-10-19 13:05 | disposition short-term general hospital (02) | DRG 682 ==
LOC: MED 11:18 → MTU 12:30
PROVIDERS: ADMIT Family Medicine; ATTEND Family Medicine
DX: N17.0 Acute kidney failure with tubular necrosis (principal); E43 Unspecified severe protein-calorie malnutrition; E87.0 Hyperosmolality and hypernatremia; D32.9 Benign neoplasm of meninges, unspecified; I16.0 Hypertensive urgency; G90.9 Disorder of the autonomic nervous system, unspecified; F41.1 Generalized anxiety disorder; F41.0 Panic disorder [episodic paroxysmal anxiety]; E87.6 Hypokalemia; E78.5 Hyperlipidemia, unspecified; E83.42 Hypomagnesemia; E86.0 Dehydration; I10 Essential (primary) hypertension; M13.88 Other specified arthritis, other site; E83.39 Other disorders of phosphorus metabolism; S09.90XA Unspecified injury of head, initial encounter; W18.30XA Fall on same level, unspecified, initial encounter; Y93.89 Activity, other specified; Y92.89 Other specified places as the place of occurrence of the external cause; Y99.8 Other external cause status; Z88.0 Allergy status to penicillin; Z72.89 Other problems related to lifestyle; Z79.899 Other long term (current) drug therapy; Z83.3 Family history of diabetes mellitus; Z82.49 Family history of ischemic heart disease and other diseases of the circulatory system; Z68.25 Body mass index [BMI] 25.0-25.9, adult